=== PATIENT | male | born 1995 ===

== ENCOUNTER 2024-06-27 16:50 | Emergency (ER) | payer OTHER, SELFPAY ==
[2024-06-27 17:02] VITALS: BP 153/80; PULSE 74; RESP 20; TEMP 36.7; O2SAT 98; BMI 35.2
--- NOTE | 2024-06-27 17:13 | ED.C_ITS ---
HPI - Psych General: Chief Complaint: Psychiatric Symptoms Stated Complaint: MHE Time Seen by Provider: 06/27/24 17:01 Source: patient Mode of arrival: ambulatory Limitations: no limitations History of Present Illness: 28-year-old male states he been having a lot of personal stressors at home at work today his boss noticed that he did seem to have high and low emotions patient states he is felt anxious and very stressed out he denies any suicidal or homicidality. Patient just moved here from [place] has no PCP does not take any meds Review of Systems Const: Denies: fever(s), chills, body aches or change in appetite ENMT: Denies: throat pain or dental pain Card: Denies: chest pain Resp: Denies: dyspnea GI: Denies: abdominal pain, nausea, vomiting or diarrhea Musc: Denies: neck pain or back pain Skin/Breast: Denies: rash Neuro: Denies: headache(s) Psych: Reports: anxiety Physical Exam Const: COMMON NORMALS: no acute distress, patient oriented x3 and healthy appearing HENMT: COMMON NORMALS: normocephalic and atraumatic HEAD & SCALP: normocephalic and atraumatic Eye: COMMON NORMALS: conjunctivae normal CONJUNCTIVA: Yes conjunctivae normal Neck/C-Spine: COMMON NORMALS: full ROM and supple Chest: COMMONS NORMALS: normal inspection of the chest Resp: COMMON NORMALS: normal respiratory effort Cardio: COMMON NORMALS: regular rate, regular rhythm and No murmurs present (Cardio) RATE: regular rate RHYTHM: regular rhythm Extremity: COMMON NORMALS: normal to inspection and full ROM Neuro: COMMON NORMALS: patient oriented x3, moves all extremities and no focal motor deficits Psych: COMMON NORMALS: mental status grossly normal, Normal thought process present and cooperative THOUGHT PROCESS: Normal thought process present THOUGHT CONTENT: No Suicidality present and No Homicidality present Skin: COMMON NORMALS: no rashes or lesions noted and no wounds GENERAL SKIN EXAM: no rashes or lesions noted Course Vital Signs: Vital signs: Vital Signs Temperature 98.0 F 06/27/24 17:02 Pulse Rate 74 06/27/24 17:02 Respiratory Rate 20 H 06/27/24 17:02 Blood Pressure 153/80 06/27/24 17:02 Pulse Oximetry 98 06/27/24 17:02 Oxygen Delivery Me thod Room Air 06/27/24 17:02 MDM - Psych Medical Decision Making Patient presents for stress anxiety is not suicidal or homicidal did talk to the crisis stabilization unit we will discharge patient over there for further eval he is not suicidal does not require inpatient at this time No radiology studies performed this visit Discharge Plan Discharge Patient Disposition: Home Clinical Impression: Anxiety Condition: Stable Discharge Orders: Discharge ED (Routine); Ordered 06/27/24 Ordered By: Stephen Aleman Discharge Diet: Advance as tolerated Discharge Activity: Resume usual activity Patient Instructions: Anxiety (ED) Coding Level of Care Code ED [employer] Professional for Demi Blackmon
[2024-06-27 17:15] VITALS: BP 153/80; PULSE 72; RESP 20; O2SAT 98
== END 2024-06-27 18:55 | disposition home or self-care (01) ==
PROVIDERS: Emergency Provider Emergency Medicine
DX: F41.9 Anxiety disorder, unspecified (principal)
CPT/HCPCS: 99283